=== PATIENT | female | born 1990 | race Two or more races ===

== ENCOUNTER 2022-04-25 21:01 | Emergency (ER) | payer MEDICAID, OTHER ==
[~2022-04-25] VITALS: Ht 152.4 cm; Wt 80.0 kg
[2022-04-25 21:38] VITALS: BP 114/71
[2022-04-25] MEDS ORDERED: KETOROLAC TROMETH 30 MG/ML 1ML VIAL IM ONE (23:45)
== END 2022-04-26 00:39 | disposition home or self-care (01) ==
LOC: ER 21:04
DX: R51.9 Headache, unspecified (principal)
CPT/HCPCS: 96372; 99283; J1885

== ENCOUNTER 2022-08-19 18:42 | Emergency (ER) | payer MEDICAID ==
[~2022-08-19] VITALS: Ht 165.1 cm; Wt 77.3 kg
[2022-08-19 19:58] VITALS: BP 122/78
[2022-08-19] MEDS ORDERED: ACET-1158 PO (22:54)
[2022-08-19] MEDS ORDERED: AMOX-277 PO (22:54)
== END 2022-08-19 22:59 | disposition home or self-care (01) ==
LOC: ER 18:42
DX: J06.9 Acute upper respiratory infection, unspecified (principal); Z79.899 Other long term (current) drug therapy; Z79.2 Long term (current) use of antibiotics; Z20.822 Contact with and (suspected) exposure to COVID-19
CPT/HCPCS: 36415; 87426; 87804

== ENCOUNTER 2025-05-05 17:27 | Emergency (ER) | payer MEDICAID ==
[~2025-05-05] VITALS: Ht 149.9 cm; Wt 85.5 kg
[~2025-05-05 17:27] MED LIST: ACET500T58 PO; AMOX875T4 PO
--- NOTE | 2025-05-05 17:53 | ED.PDOC ---
History of Present Illness HPI Comments This is a 34-year-old lady with no significant past medical history, the hospital due to abdominal pain since 2 weeks. Pain is localized at right upper quadrant, 7/10 intensity, constant, which worsened with taking food. She also reports of nausea, vomiting, generalized weakness, diarrhea and dizziness. Alphonso grimm, patient went to PCP office, she was found to have low blood pressure and referred to the ER. She denies fever, chest pain, shortness of breaths or any bowel habit changes. Per patient, she had a cholecystectomy 3 months back. Chief Complaint: General Weakness Time Seen by MD: 17:29 Reviewed Notes: Nurses Notes Allergies: Coded Allergies: NO KNOWN ALLERGIES (Unverified , 04/25/22) Home Meds Active Scripts Amoxicillin & Pot Clavulanate (Amoxicillin/Potassium Cla) 875 Mg Tab, 1 TAB PO BID for 7 Days, #14 TAB 0 Refills Prov:TREMAYNE DE LA FUENTE 08/19/22 Acetaminophen (Acetaminophen) 500 Mg Tab, 500 MG PO QIDP, #30 TAB 0 Refills Prov:TREMAYNE DE LA FUENTE 08/19/22 Information Source: Patient Mode of Arrival: Ambulatory Past Medical History PAST MEDICAL HISTORY: Denies Surgical History: Denies all surgeries FLOW SPECIALIST History: No Pertinent FLOW SPECIALIST History Family History Family History: Unknown Social History Smoker: Non-Smoker Alcohol: Denies ETOH Use Drugs: Denies Drug Use Lives In: Home Constitutional: reports: fatigue, weakness; denies: chills, diaphoresis, fever, malaise, sweats, others EENTM: denies: blurred vision, double vision, ear bleeding, ear discharge, ear drainage, ear pain, ear ringing, eye pain, eye redness, hearing loss, mouth pain, mouth swelling, nasal discharge, nose bleeding, nose congestion, nose pain, photophobia, tearing, throat pain, throat swelling, voice changes, others Respiratory: denies: cough, hemoptysis, orthopnea, SOB at rest, shortness of breath, SOB with excertion, stridor, wheezing, others Cardiovascular: denies: chest pain, dizzy spells, diaphoresis, Dyspnea on exertion, edema, irregular heart beat, left arm pain, lightheadedness, palpitations, PND, syncope, others Gastrointestinal: reports: abdominal pain; denies: abdomen distended, blood streaked bowels, constipated, diarrhea, dysphagia, difficulty swallowing, gabriela temesis, melena, nausea, poor appetite, poor fluid intake, rectal bleeding, rectal pain, vomiting, others Genitourinary: denies: abnormal vagina bleeding, burning, dyspareunia, dysuria, flank pain, frequency, hematuria, incontinence, pain, , vagina discharge, urgency, others Neurological: denies: dizziness, fainting, headache, left sided numbness, left sided weakness, numbness, paresthesia, pre-existing deficit, right sided numbness, right sided weakness, seizure, speech problems, tingling, tremors, weakness, others Musculoskeletal: denies: back pain, gout, joint pain, joint swelling, muscle pain, muscle stiffness, neck pain, others Integumetry: denies: bruises, change in color, change in hair/nails, dryness, laceration, lesions, lumps, rash, wounds, others Allergic/Immunocompromised: denies: Difficulty Healing, Frequent Infections, Hives, Itching, others Hematologic/Lymphatic: denies: anemia, blood clots, easy bleeding, easy bruising, swollen glands, others Endocrine: denies: excessive hunger, excessive sweating, excessive thirst, excessive urination, flushing, intolerance to cold, intolerance to heat, unexplained weight gain, unexplained weight loss, others Psychiatric: denies: anxiety, bipolar disorder, depression, hopeless, panic disorder, schizophrenia, sleepless, suicidal, others Physical Exam General Appearance: No Apparent Distress, Normal HEENT: Normal ENT Inspection, Pharynx Normal, TMs Normal Neck: Full Range of Motion, Non-Tender, Normal, Normal Inspection Respiratory: Chest Non-Tender, Lungs Clear, No Accessory Muscle Use, No Respiratory Distress, Normal Breath Sounds Cardiovascular: No Edema, No JVD, No Murmur, No Gallop, Normal Peripheral Pulses, Regular Rate/Rhythm Breast Exam: Deferred Gastrointestinal: No Organomegaly, No Pulsatile Mass, Normal Bowel Sounds, RUQ, Soft, Tenderness Genitalia: Deferred Pelvic: Deferred Rectal: Deferred Extremities: No calf tenderness, Normal capillary refill, Normal inspection, Normal range of motion, Non-tender, No pedal edema Musculoskeletal : Apperance: Normal Neurologic: Alert, correction lieutenant II-XII nml as Tested, No Motor Deficits, Normal Affect, Normal Mood, No Sensory Deficits Cerebellar Function: Normal Reflexes: Normal Skin: Dry, Normal Color, Warm Lymphatic: No Adenopathy Was a procedure done? Was a procedure done?: No Differential Dx Considerations may include: Gastroenteritis X-Ray, Labs, Meds, VS Vital Signs Date Time Temp Pulse Resp B/P (MAP) Pulse Ox O2 Delivery O2 Flow Rate FiO2 05/05/25 17:31 97.9 84 18 121/76 98 97.9 Lab Test 05/05/25 19:07 05/05/25 18:18 Range/Units Troponin I High Sensitivity Pending < 3 L </=34 ng/L White Blood Count 9.1 4.4-10.8 10^3/uL Red Blood Count 4.48 4.0-5.20 10^6/uL Hemoglobin 12.9 12.2-16.2 g/dL Hematocrit 37.7 36.0-46.0 % Mean Corpuscular Volume 84.3 80.0-100.0 fL Mean Corpuscular Hemoglobin 28.8 28.0-32.0 pg Mean Corpuscular Hemoglobin Concent 34.1 32.0-36.0 g/dL Red Cell Distribution Width 15.3 H 11.8-14.3 % Platelet Count 412 140-450 10^3/uL Mean Platelet Volume 6.7 L 6.9-10.8 fL Neutrophils (%) (Auto) 65.2 37.0-80.0 % Lymphocytes (%) (Auto) 26.9 10.0-50.0 % Monocytes (%) (Auto) 6.8 0.0-12.0 % Eosinophils (%) (Auto) 0.7 0.0-7.0 % Basophils (%) (Auto) 0.4 0.0-2.0 % Neutrophils # (Auto) 5.9 1.6-8.6 10 ^3/uL Lymphocytes # (Auto) 2.4 0.4-5.4 10 ^3/uL Monocytes # (Auto) 0.6 0-1.3 10 ^3/uL Eosinophils # (Auto) 0.1 0-0.8 10 ^3/uL Basophils # (Auto) 0 0-0.2 10 ^3/uL Nucleated Red Blood Cells 0.0 % Sodium Level 141 136-145 mmol/L Potassium Level 4.2 3.5-5.1 mmol/L Chloride Level 106 98-107 mmol/L Carbon Dioxide Level 26 20-31 mmol/L Anion Gap 9 5-15 Blood Urea Nitrogen 7 L 9-23 mg/dL Creatinine 0.72 0.550-1.02 mg/dL Glomerular Filtration Rate Calc 112 >90 mL/min BUN/Creatinine Ratio 9.7 L 10.0-20.0 Serum Glucose 89 74-106 mg/dL Calcium Level 9.1 8.7-10.4 mg/dL Magnesium Level 2.1 1.6-2.6 mg/dL Total Bilirubin 0.3 0.2-1.0 mg/dL Aspartate Amino Transferase (AST) 18 13-40 U/L Alanine Aminotransferase (ALT) 21 7-40 U/L Alkaline Phosphatase 98 46-116 U/L Total Protein 7.5 5.7-8.2 g/dL Albumin 4.3 3.2-4.8 g/dL Lipase 45 12-53 U/L Beta HCG, Quantitative 0.0 L 1.5-4.2 mIU/mL Plasma/Serum Blood Alcohol < 3.0 <10 mg/dL Time of 1ST Reevaluation: 19:28 Reevaluation 1ST: Improved Patient Education/Counseling: Diagnosis, Treatment, Prognosis, Need For Follow Up Family Education/Counseling: Diagnosis, Treatment, Prognosis, Need For Follow Up Comments Patient came to the hospital due to abdominal pain. Patient is was vitally stable CBC within normal limits CMP within normal limits Abdominopelvic CT scan performed, showed no significant intra-abdominal pathology. Patient was given normal sinus, ketorolac and acetaminophen. On subsequent workup, patient was feeling better. Patient was discharged home. Follow up with the PCP. SEPSIS Sepsis Screen Date sepsis recognized/suspect: May 05, 2025 Time Sepsis recognized/suspect: 1732 Recent Procedure: No On Antibiotic Therapy: No Respiratory Rate >20: No Heart Rate >90: No Temp<36 C (96.8 F) or >38.3 C: No SBP <90 or MAP <65 mmHG: No New Acute Mental Status Change: No Is the patient on CPAP, BIPAP,: No Physician Orders Ct Ab Pel Wo Con-No Oral Or Iv (05/05/25 17:32) Troponin-I Hs (05/05/25 18:52) Troponin-I Hs (05/05/25 20:52) Vital Signs Date Time Temp Pulse Resp B/P (MAP) Pulse Ox O2 Delivery O2 Flow Rate FiO2 05/05/25 17:31 97.9 84 18 121/76 98 97.9 Laboratory Tests Test 05/05/25 18:18 White Blood Count 9.1 10^3/uL (4.4-10.8) Departure 1 Departure Time of Disposition: 19:30 Impression: Primary Impression: Gastroenteritis Disposition: 01 HOME / SELF CARE / HOMELESS Condition: Good Critical Care Note Critical Care Time?: Yes (45 min-critical care time only) Stability Stability form required: No Heart Score Heart Score: Heart Score Response (Comments) Value History N/A 0 EKG N/A 0 Age N/A 0 Risk Factors N/A 0 Troponin N/A 0 Total 0 DIAMOND ENCARNACION RESLAKISHA May 05, 2025 17:53
[2025-05-05 18:27] LABS: Hematocrit 37.7 % (36.0-46.0); Hemoglobin 12.9 g/dL (12.2-16.2); Mean Corpuscular Hemoglobin 28.8 pg (28.0-32.0); Mean Corpuscular Volume 84.3 fL (80.0-100.0); Nucleated Red Blood Cells % 0.0 %
[2025-05-05 18:41] LABS: Alanine Aminotransferase 21 U/L (7-40); Albumin 4.3 g/dL (3.2-4.8); Alkaline Phosphatase 98 U/L (46-116); Anion Gap 9 (5-15); BUN/Creatinine Ratio 9.7 (10.0-20.0); Bilirubin, Total 0.3 mg/dL (0.2-1.0); Calcium 9.1 mg/dL (8.7-10.4); Carbon Dioxide 26 mmol/L (20-31); Chloride 106 mmol/L (98-107); Glucose 89 mg/dL (74-106); Lipase 45 U/L (12-53); Magnesium 2.1 mg/dL (1.6-2.6); Potassium 4.2 mmol/L (3.5-5.1); Sodium 141 mmol/L (136-145); Total Protein 7.5 g/dL (5.7-8.2)
[2025-05-05 18:43] LABS: Blood Urea Nitrogen 7 mg/dL (9-23)
--- NOTE | 2025-05-05 19:59 | DVH ---
Exam: CT CT AB PEL WO CON-NO ORAL OR IV History: ab. pain Comparison Study: None TECHNIQUE: Multidetector CT of the abdomen AND PELVIS without IV contrast. Axial, coronal and sagitta l multiplanar reformats were obtained from the axial data set by the technologist. Radiation Dose Information: CT Dose: CTDI volume is 26.5 mGy. Dose-length product is 1364.9 mGy*cm FINDINGS: The lung bases are clear. Partially visualized heart is unremarkable. Status post cholecystectomy. Mild hepatomegaly. Otherwise, liver, spleen, pancreas and adrenal gland s unremarkable. Kidneys, ureters and urinary bladder unremarkable. Uterus and adnexa are unremarkable. Foci of air w ithin the vagina which is nonspecific. Gastric wall thickening which may be due to inadequate distention. The Small bowel loops are unremark able. Appendix is not definitely visualized. Small to moderate amount of fecal material within the co karen. No evidence of intraperitoneal free air or free fluid. No evidence of aortic aneurysm. No significant lymphadenopathy. Small fat containing umbilical hernia. Calcified granulomas over the bilateral gluteal regions. Chron ic bilateral L5 pars defects. IMPRESSION: Gastric wall thickening which may be due to inadequate distention with mild gastritis not excluded. Otherwise, no evidence of acute abdominopelvic abnormalities.
[2025-05-05] MEDS ORDERED: PANT40TA2 PO (20:11)
[2025-05-05 21:57] VITALS: BP 104/69; PULSE 77; RESP 18; TEMP 97.7; O2SAT 99
[2025-05-05] MEDS: SODIUM CHLORIDE 0.9% 1,000 ML IV ONE (21:57)
[2025-05-05] MEDS: PANTOPRAZOLE 40 MG/10 ML VIAL INJ IV ONE (22:10)
[2025-05-05] MEDS: ONDANSETRON HCL 4 MG/2 ML VIAL IV ONE (22:23)
[2025-05-05] MEDS: KETOROLAC TROMETH 30 MG/ML 1ML VIAL IV ONE (22:24)
[2025-05-05] MEDS: ACETAMINOPHEN 325 MG TAB PO ONE (22:24)
== END 2025-05-05 23:22 | disposition home or self-care (01) ==
LOC: ER 17:27
DX: K52.9 Noninfective gastroenteritis and colitis, unspecified (principal); Z79.899 Other long term (current) drug therapy
CPT/HCPCS: 36415; 74176; 80053; 80320; 83690; 83735; 84484; 84702; 85025; 96361; 96374; 96375; 99285; J2405; J2470; J7030; J1885